=== PATIENT | female | born 1980 | race Caucasian/White ===

== ENCOUNTER 2016-12-31 06:20 | Inpatient (IN) | payer OTHER ==
[~2016-12-31] VITALS: Ht 162 cm; Wt 71.0 kg
[~2016-12-31 06:20] MED LIST: DEXAMETHASONE SOD PHOS 4 MG/ML VIAL IVP ONE; EPHEDrine SULFATE 50 MG/ML VIAL IM ONE; KETOROLAC TROMETHAMINE 60 MG/2 ML VIAL IM ONE; ONDANSETRON HCL 4 MG/2 ML VIAL IVP ONE; OXYTOCIN 10 UNITS/ML VIAL IM ONE
[2016-12-31] MEDS ORDERED: RINGERS SOLUTION,LACTATED 1,000 ML IV ONE (06:22)
[2016-12-31] MEDS ORDERED: CITRIC ACID/SODIUM CITRATE 30 ML SOLUTION UDCUP PO ONE (06:30)
[2016-12-31] MEDS ORDERED: METOCLOPRAMIDE HCL 5 MG/ML 2 ML VIAL IVP ONE (06:30)
[2016-12-31 06:42] VITALS: BP 148/70
[2016-12-31] MEDS ORDERED: MORPHINE SULFATE/PF 0.5 MG/ML 10 ML AMP ONE (06:44)
[2016-12-31] MEDS ORDERED: MIDAZOLAM HCL 2 MG/2 ML VIAL ONE (06:44)
[2016-12-31] MEDS ORDERED: FentaNYL CITRATE-PF 100 MCG/2 ML VIAL ONE (06:44)
[2016-12-31] MEDS ORDERED: GUM MASTIC/STORAX/MSAL/ALCOHOL LIQUID 0.67 ML VIAL TP ONE (06:46)
[2016-12-31] MEDS ORDERED: PREN1TAB80 PO (06:47)
[2016-12-31] MEDS ORDERED: INFLUENZA VIRUS VACCINE QVS 2016-17 (3YR+)/PF 60 MCG/0.5 ML SYRINGE IM ONE (07:00)
[2016-12-31 07:06] LABS: BASOPHILS # (AUTO) 0.02 K/uL (0.00-0.20); BASOPHILS % (AUTO) 0.3 % (0.0-2.0); EOSINOPHILS # (AUTO) 0.05 K/uL (0.00-0.70); HEMATOCRIT 37.9 % (36-46); HEMOGLOBIN 12.9 g/dL (12.0-16.0); LYMPHOCYTES # (AUTO) 2.6 K/uL (1.0-4.8); LYMPHOCYTES % (AUTO) 27.3 % (22.0-44.0); MEAN CORPUSCULAR HEMOGLOBIN 31.6 pg (26.0-34.0); MEAN CORPUSCULAR HGB CONC 34.1 G/dL (31.0-37.0); MEAN CORPUSCULAR VOLUME 93 fL (80-100); MONOCYTES # (AUTO) 0.6 K/uL (0.1-1.0); MONOCYTES % (AUTO) 6.6 % (2.0-9.0); NEUTROPHILS # (AUTO) 6.2 K/uL (1.8-7.7); NEUTROPHILS % (AUTO) 65.4 % (40.0-70.0); PLATELET COUNT (AUTO) 247 K/uL (150-450); RED BLOOD CELL COUNT(AUTO) 4.09 MIL/uL (4.00-5.20); RED CELL DISTRIBUTION WIDTH 14.3 % (11.5-14.5); WHITE BLOOD COUNT (AUTO) 9.5 K/uL (4.5-11.0)
[2016-12-31] MEDS ORDERED: OXYGEN THERAPY IH SCH ×2 (08:45)
[2016-12-31] MEDS ORDERED: FentaNYL CITRATE-PF 100 MCG/2 ML VIAL IVP PRN ×2 (08:45)
[2016-12-31] MEDS ORDERED: ONDANSETRON HCL 4 MG/2 ML VIAL IVP PRN ×2 (08:45)
[2016-12-31] MEDS ORDERED: DiphenhydrAMINE HCL 50 MG/ML VIAL IVP PRN ×2 (08:45)
[2016-12-31] MEDS ORDERED: MORPHINE SULFATE 4 MG/ML SYRINGE IVP PRN (08:45)
[2016-12-31] MEDS ORDERED: MORPHINE SULFATE 2 MG/ML SYRINGE IVP PRN (08:45)
[2016-12-31] MEDS ORDERED: ACETAMINOPHEN/CODEINE 300-30 MG TABLET PO PRN ×2 (09:00)
[2016-12-31] MEDS ORDERED: LANOLIN 7 GM OINTMENT TP PRN (09:00)
[2016-12-31] MEDS: MAGNESIUM HYDROXIDE SUSPENSION 30 ML UDCUP PO SCH (09:00)
[2016-12-31] MEDS: DEXTROSE 5%-0.45% SODIUM CHL 1,000 ML IV SCH ×4 (11:04→23:43)
[2016-12-31] MEDS: NALBUPHINE HCL 10 MG/ML VIAL IVP SCH ×2 (12:59→18:46)
[2016-12-31] MEDS: KETOROLAC TROMETHAMINE 30 MG/ML VIAL IVP SCH ×2 (15:05→21:03)
[2017-01-01] MEDS: NALBUPHINE HCL 10 MG/ML VIAL IVP SCH (00:43)
[2017-01-01] MEDS ORDERED: IBUPROFEN 800 MG TABLET PO SCH (02:00)
[2017-01-01] MEDS: KETOROLAC TROMETHAMINE 30 MG/ML VIAL IVP SCH (03:55)
[2017-01-01] MEDS: MAGNESIUM HYDROXIDE SUSPENSION 30 ML UDCUP PO SCH ×2 (08:08→22:04)
[2017-01-01] MEDS: IBUPROFEN 800 MG TABLET PO SCH ×3 (10:39→22:04)
[2017-01-02] MEDS: IBUPROFEN 800 MG TABLET PO SCH ×4 (04:02→22:34)
[2017-01-02] MEDS: MAGNESIUM HYDROXIDE SUSPENSION 30 ML UDCUP PO SCH (09:00)
[2017-01-03] MEDS: IBUPROFEN 800 MG TABLET PO SCH (05:05)
[2017-01-03] MEDS ORDERED: TYL3B PO (08:36)
[2017-01-03] MEDS ORDERED: IBUP-2070 PO (08:36)
[2017-01-03] MEDS ORDERED: DSS100 PO (08:37)
== END 2017-01-03 11:35 | disposition home or self-care (01) | DRG 766 ==
LOC: 4S 06:20 → PREOBSVTOIN 01-04 06:34
PROVIDERS: ADMIT Obstetrics & Gynecology; ATTEND Obstetrics & Gynecology
PROC: 10D00Z1 Extraction of Products of Conception, Low, Open Approach (ICD-10-PCS; principal; 2016-12-31)
PROC: 0UB70ZZ Excision of Bilateral Fallopian Tubes, Open Approach (ICD-10-PCS; 2016-12-31)
DX: O34.211 Maternal care for low transverse scar from previous cesarean delivery (principal); O09.523 Supervision of elderly multigravida, third trimester; Z3A.39 39 weeks gestation of pregnancy; Z37.0 Single live birth; Z79.899 Other long term (current) drug therapy
CPT/HCPCS: 86850; 86900; 86901; 87081; 88302; J0690; J1100; J1885; J2250; J2274; J2300; J2405; J2590; J2765; J3010; J3490